=== PATIENT | female | born 1960 | race Caucasian/White ===

== ENCOUNTER 2016-12-16 00:16 | Emergency (ER) | payer MEDICAID ==
[2016-12-16] MEDS ORDERED: NORMAL SALINE 1000 ML 1,000 ML IV ONE (00:31)
--- NOTE | 2016-12-16 00:34 | ER Document Report ---
ED General - General Stated Complaint: FALL Time Seen by Provider: 12/16/16 00:28 Notes: Patient is a 56-year-old female with past medical history of hypertension and tobacco dependence who presents after a syncopal episode. Patient states that she walked into the bathroom, became lightheaded, felt very warm and then had an episode of syncope. She did not strike her head or neck. States that she is uncertain if she completely lost consciousness but believes that she was still somewhat lucent the entire time. EMS states that they noticed that patient seemed to be staring off but would follow commands during this episode. Patient states she has had similar symptoms and episodes in the past that are currently being evaluated by her primary care doctor. She has no known cardiac history. No history of MIs, CHF or chronic kidney disease. At the time of my assessment she denies any symptoms. She denies any headache, neck pain, chest pain, shortness of breath nausea or vomiting. She is uncertain what triggered today's episode. She has noted that the symptoms do tend to resolve independently and her symptoms again today have resolved without intervention. - Related Data Allergies/Adverse Reactions: No Known Allergies Allergy (Verified 12/16/16 02:24) Past Medical History - General Information source: Patient - Social History Smoking Status: Current Every Day Smoker Frequency of alcohol use: None Drug Abuse: None Lives with: Spouse/Significant other Family History: Reviewed & Not Pertinent - Past Medical History Cardiac Medical History: Reports: Hx Hypertension Pulmonary Medical History: Reports: Hx COPD Musculoskeltal Medical History: Reports Hx Arthritis - Immunizations Hx Diphtheria, Pertussis, Tetanus Vaccination: Yes Review of Systems - Review of Systems Notes: Constitutional: Negative for fever. HENT: Negative for sore throat. Eyes: Negative for visual changes. Cardiovascular: Negative for chest pain. Respiratory: Negative for shortness of breath. Gastrointestinal: Negative for abdominal pain, vomiting or diarrhea. Genitourinary: Negative for dysuria. Musculoskeletal: Negative for back pain. Skin: Negative for rash. Neurological: Negative for headaches, weakness or numbness. 10 point ROS negative except as marked above and in HPI. Physical Exam - Vital signs Vitals: Temp Resp BP Pulse Ox 98.1 F 20 145/90 H 98 12/16/16 00:25 12/16/16 00:25 12/16/16 00:25 12/16/16 00:25 Interpretation: Hypertensive Notes: PHYSICAL EXAMINATION: GENERAL: Well-appearing, well-nourished and in no acute distress. HEAD: Atraumatic, normocephalic. EYES: Pupils equal round and reactive to light, extraocular movements intact, sclera anicteric, conjunctiva are normal. ENT: nares patent, oropharynx clear without exudates. Moist mucous membranes. NECK: Normal range of motion, supple without lymphadenopathy no cervical midline tenderness. Patient ranges her neck 45 bilaterally without difficulty. LUNGS: Breath sounds clear to auscultation bilaterally and equal. No wheezes rales or rhonchi. HEART: Regular rate and rhythm without murmurs ABDOMEN: Soft, nontender, normoactive bowel sounds. No guarding, no rebound. No masses appreciated. EXTREMITIES: Normal range of motion, no pitting or edema. No cyanosis. NEUROLOGICAL: No focal neurological deficits. Moves all extremities spontaneously and on command. PSYCH: Normal mood, normal affect. SKIN: Warm, Dry, normal turgor, no rashes or lesions noted. Course - Re-evaluation Re-evalutation: 12/16/16 00:33 Presentation of syncope of unclear etiology. Patient normotensive, alert, without focal neurologic deficits at time of arrival. Denies syncope was during exertion. No preceding symptoms of palpitations, chest pain, or shortness of breath. Patient asymptomatic at time of arrival. EKG is without evidence of HCOM , right heart strain, ST changes to suggest ischemia, prolong QTc, delta wave, epsilon wave, or Brugada syndrome. Patient denies any family history of sudden cardiac , personal history of of structural heart disease. Patient denies any symptoms to suggest an acute PE, KS, TAD, SAH, seizure, or acute GI bleed as the etiology of their syncope today. On exam, no murmurs to suggest critical aortic stenosis as possible etiology. Although there was an EMS report of a possible seizure of which patient has a history, she was noted to be awake during this event and the concern was more about her "staring off" shortly after their arrival. She has no evidence of a postictal state at time of arrival. Moreover her clinical history is more consistent with an acute syncopal episode. Of note, patient did arrive with a cervical collar in place. Patient evaluated by NEXUS criteria and found to be negative. Patient is also negative by [place] C-spine criteria. No clinical evidence to suggest increased risk of cervical spine fracture. No indication for further imaging of the cervical spine this point. Based on overall clinical history, exam findings, vitals, and patients appearance, I feel it is safe for patient to be discharged home at this time with close outpatient follow-up and strict return precautions. Patient is in agreement with this plan, has verbalized indications for return to ED, and questions have been answered. - Vital Signs Vital signs: Temp Pulse Resp BP Pulse Ox 97.8 F 19 150/68 H 96 12/16/16 02:18 12/16/16 02:01 12/16/16 02:01 12/16/16 02:01 - Laboratory Result Diagrams: 12/16/16 00:25 12/16/16 00:25 Laboratory results interpreted by me: 12/16/16 12/16/16 00:25 00:25 Hgb 16.2 H Hct 47.5 H RDW 15.3 H Carbon Dioxide 20 L Anion Gap 20 H - EKG Interpretation by Me Additional EKG results interpreted by me: 12/16/16 01:41 Normal sinus rhythm. Rate 61. No ST elevations or depressions. T-wave inversions in the lateral leads unchanged from prior. QTC is 468. Discharge - Discharge Clinical Impression: Syncope Qualifiers: Syncope type: unspecified Qualified Code(s): R55 - Syncope and collapse Condition: Good Disposition: HOME, SELF-CARE Additional Instructions: You were seen today after an episode of passing out. Your EKG here is normal. At this time, we do not feel that your episode of passing out was from any life- threatening cause. Please drink plenty of fluids over the next several days. Return to emergency department if you have any further episodes of syncope, headache, weakness, numbness, chest pain, or shortness of breath. Please follow up closely with your primary care physician.
[2016-12-16 00:42] LABS: ABSOLUTE BASOPHILS # (AUTO) 0.1 10^3/uL (0.0-0.2); ABSOLUTE EOSINOPHILS # (AUTO) 0.2 10^3/uL (0.0-0.6); ABSOLUTE LYMPHOCYTES (AUTO) 2.3 10^3/uL (0.5-4.7); ABSOLUTE MONOCYTES (AUTO) 0.5 10^3/uL (0.1-1.4); ABSOLUTE NEUT (AUTO) 5.4 10^3/uL (1.7-8.2); BASOPHILS % (AUTO) 0.9 % (0-2); EOSINOPHILS % (AUTO) 1.9 % (0-6); HEMATOCRIT 47.5 % (36.0-47.0); HEMOGLOBIN 16.2 g/dL (12.0-15.5); HGB HCT DIFFERENCE 1.1; LYMPHOCYTES % (AUTO) 27.6 % (13-45); MEAN CORPUSCULAR HEMOGLOBIN 32.1 pg (27.0-33.4); MEAN CORPUSCULAR HGB CONC 34.2 g/dL (32.0-36.0); MEAN CORPUSCULAR VOLUME 94 fl (80-97); MONOCYTES % (AUTO) 6.4 % (3-13); RED BLOOD COUNT 5.04 10^6/uL (3.72-5.28); RED CELL DISTRIBUTION WIDTH 15.3 % (11.5-14.0); SEGMENTED NEUTROPHILS % (AUTO) 63.2 % (42-78); WHITE BLOOD COUNT 8.5 10^3/uL (4.0-10.5)
[2016-12-16 00:53] LABS: BLOOD UREA NITROGEN 19 mg/dL (7-20); CALCIUM 9.7 mg/dL (8.4-10.2); CARBON DIOXIDE 20 mmol/L (22-30); CHLORIDE 101 mmol/L (98-107); CREATININE RESULT 0.92 mg/dL (0.52-1.25); GLUCOSE 108 mg/dL (75-110); POTASSIUM 3.7 mmol/L (3.6-5.0)
[2016-12-16 01:00] LABS: SODIUM 140.9 mmol/L (137-145)
[2016-12-16 01:01] LABS: ANION GAP 20 (5-19)
[2016-12-16 02:07] VITALS: BP 150/68
--- NOTE | 2016-12-16 21:13 | EKG REPORT ---
SEVERITY:- ABNORMAL ECG - SINUS RHYTHM PROBABLE LEFT ATRIAL ABNORMALITY PROBABLE LVH WITH SECONDARY REPOL ABNRM : Confirmed by: Julianna Crow 16-Dec-2016 21:13:00
== END 2016-12-16 02:20 | disposition home or self-care (01) ==
LOC: ER 00:16
DX: R55 Syncope and collapse (principal); I10 Essential (primary) hypertension; F17.200 Nicotine dependence, unspecified, uncomplicated
CPT/HCPCS: 93005; 99284; 36415; 85025; 80048; 93010; J7030